=== PATIENT | female | born 1945 | race Caucasian/White ===

== ENCOUNTER → 2021-03-25 | Outpatient (CLI) | payer BC, OTHER | LOC: LAB 10:33 | PROVIDERS: Emergency Medicine | DX: E78.2 Mixed hyperlipidemia (principal); I12.9 Hypertensive chronic kidney disease with stage 1 through stage 4 chronic kidney disease, or unspecified chronic kidney disease; N18.30 Chronic kidney disease, stage 3 unspecified; R73.09 Other abnormal glucose | CPT/HCPCS: 36415; 80053; 80061; 83704; 84550 ==

== ENCOUNTER → 2021-12-07 | Outpatient (CLI) | payer BC, OTHER ==
[2021-12-10 11:25] LABS: CHOLESTEROL, TOTAL 173 mg/dL (100-199); HDL SIZE 9.1 nm (>=9.2); HDL-C 55 mg/dL (>39); HDL-P (TOTAL) 28.8 umol/L (>=30.5); LARGE HDL-P 6.6 umol/L (>=4.8); LARGE VLDL-P 1.5 nmol/L (<=2.7); LDL SIZE 21.1 nm (>20.5); LDL SIZE 21.1 nm (>=20.8); LDL-C 103 mg/dL (0-99); LDL-P 1143 nmol/L (<1000); LP-IR SCORE 30 (<=45); SMALL LDL-P 416 nmol/L (<=527); TRIGLYCERIDES 78 mg/dL (0-149); VLDL SIZE 41.8 nm (<=46.6)
== END ==
LOC: LAB 11:19
PROVIDERS: Emergency Medicine
DX: I10 Essential (primary) hypertension (principal); K21.9 Gastro-esophageal reflux disease without esophagitis; E78.2 Mixed hyperlipidemia
CPT/HCPCS: 36415; 80053; 80061; 83704